=== PATIENT | female | born 1970 | race American Indian/Alaskan Native ===

== ENCOUNTER 2021-07-11 14:37 | Emergency (ER) | payer OTHER ==
[2021-07-11] MEDS ORDERED: IBUPROFEN 600 MG TAB PO ONE (20:51)
[2021-07-11] MEDS ORDERED: traMADol 50 MG TAB PO ONE (20:51)
[2021-07-11] MEDS ORDERED: diazePAM 5 MG TAB PO ONE (20:51)
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
[2021-07-11 22:23] VITALS: BP 157/92
== END 2021-07-11 22:24 | disposition home or self-care (01) ==
LOC: ED 14:37
DX: S39.012A Strain of muscle, fascia and tendon of lower back, initial encounter (principal); M62.830 Muscle spasm of back; Z79.899 Other long term (current) drug therapy; V89.2XXA Person injured in unspecified motor-vehicle accident, traffic, initial encounter; Y93.89 Activity, other specified; Y92.89 Other specified places as the place of occurrence of the external cause; Y99.8 Other external cause status
CPT/HCPCS: 70450; 72100; 72125; 99284